=== PATIENT | female | born 1980 | race Caucasian/White ===

== ENCOUNTER → 2017-06-20 | Outpatient (CLI) | payer BC, OTHER ==
--- NOTE | 2017-06-23 07:35 | MAMMOGRAPHY REPORT ---
BILATERAL DIGITAL SCREENING MAMMOGRAM TOMOSYNTHESIS WITH CAD: 06/20/2017 CLINICAL HISTORY: Routine screening. Patient has no complaints. TECHNIQUE: Breast tomosynthesis in addition to standard 2D mammography was performed. Current study was also evaluated with a Computer Aided Detection (CAD) system. COMPARISON: Comparison is made to exams dated: 12/22/2014 mammogram, 12/25/2015 mammogram, 08/23/2014 ma mmogram, and 12/22/2014 ultrasound - [facility]. BREAST COMPOSITION: The tissue of both breasts is heterogeneously dense, which may obscure small mas ses. FINDINGS: No suspicious masses, calcifications, or areas of architectural distortion are noted in ei ther breast. There has been no significant interval change compared to prior exams. IMPRESSION: ACR BI-RADS CATEGORY 1: NEGATIVE There is no mammographic evidence of malignancy. A 1 year screening mammogram is recommended. The pa tient will receive written notification of the results. Approximately 10% of breast cancers are not detected with mammography. A negative mammographic report should not delay biopsy if a clinically suggestive mass is present. Bailey Paula M.D. ah/:06/20/2017 16:05:33 Legal Biller: Magui AMAYA(R)(M), [facility] letter sent: Normal 1/2 BI-RADS Code: ACR BI-RADS Category 1: Negative
== END | disposition home or self-care (01) ==
LOC: C.MAMM 15:06
PROVIDERS: ATTEND Obstetrics & Gynecology
DX: Z12.31 Encounter for screening mammogram for malignant neoplasm of breast (principal)

== ENCOUNTER → 2017-06-25 | Outpatient (CLI) | payer OTHER ==
--- NOTE | 2017-06-25 09:01 | DIAGNOSTIC IMAGING REPORT ---
LUMBAR SPINE 5 VIEWS HISTORY: LOW BACK PAIN WITH RIGHT RADICULOPATHY COMPARISON: None. FINDINGS: There is no fracture. No subluxation. Disc spaces are preserved. IMPRESSION: No fracture or subluxation within the lumbar spine. Electronically signed by: Joshua Rodgers M.D. 06/25/2017 9:00 AM Dictated Date/Time: 06/25/2017 8:59 AM
== END | disposition home or self-care (01) ==
LOC: C.RDSM 08:43
PROVIDERS: ATTEND Internal Medicine
DX: M54.5 Low back pain (principal)

== ENCOUNTER 2020-12-05 15:46 | Inpatient (IN) ==
[2020-12-05] MEDS ORDERED: OXYTOCIN 30 UNITS/500 ML BAG IV PRN (18:32)
--- NOTE | 2020-12-05 18:35 | History & Physical Report ---
Date of Service December 05, 2020 Assessment & Plan (1) Supervision of elderly primigravida: 39 y/o at 40 1/7 wga presenting in labor VSS Fetus cat 1 Labor - has made cervical change, will continue expectant management and augment as needed GBS neg epidural PRN will obtain covid test Admission and Anticipated Discharge Date Admission Date: December 05, 2020 History of Present Illness Chief Complaint: Labor Primary Care Provider: Al Rodriguez 39 y/o at 40 1/7 wga w/ MYRA 12/04 by LMP c/w 1st tri US who presents w/ c/o ctx increasing in frequency and intensity since being checked this AM, q2min. +FM, denies LOF. Small amt of VB here PNI: AMA > 40, had echo wnl Anxiety - zoloft Past [employer] HX: G1 2018 SAB - D&E G2 2019 SAB G3 2020 SAB G4 current Menarche 10, cycles q26d Reports hx abnl pap that she had colpo for years ago, 2018 neg cytology Denies hx STIs, reports hx of +HSV blood test but has never had oral or genital outbreak Allergies Allergy/AdvReac Type Severity Reaction Status Date / Time No Known Drug Allergies Allergy Verified 12/05/20 11:09 Home Medications Medication Instructions Recorded Confirmed Type sertraline 50 mg PO DAILY 11/01/18 12/05/20 History prenat.vits,leigh ann,[id number]-ulnfm 1 tab PO DAILY 10/06/19 12/05/20 History aspirin 81 mg chewable tablet 81 mg PO DAILY 08/14/20 12/05/20 History Patient History Medical History Anemia Anxiety Decreased hearing of left ear Depression Hx of varicella Miscarriage Missed Otitis externa Surgical History H/O wisdom tooth extraction Hx of LASIK S/P dilatation and curettage 2017 Family History Mother Breast cancer Dx at 45 Father Hypertension Grandfather (Paternal) Stroke Family/Other Heart disease multiple family members Other Family history non-contributory Denies family history of Ovarian cancer Colorectal cancer Uterine cancer Social History (Updated 04/21/20 @ 14:38 by Charley Murry) Smoking Status: Never smoker Hx Alcohol Use: No Hx Substance Use: No Preferred Language: Setswana Communication Ability: Effective Beliefs That Will Affect Care: None marital status: marital status details: Brandon Kirby (37) [phone] Current Living Situation: Spouse Current Living Situation Comment: lives with spouse, 2 dogs current occupational status: employed current occupation: Faculty @ [employer] Other Information That Helps Us Care for You: No Feels Safe at Home: Yes Safety Concerns: Feels Safe At This Time Assistive Devices: None Physical Exam Constitutional: WD/WN, vitals as above Respiratory: normal respiratory effort; no respiratory distress and no labored breathing Psychiatric: A+Ox3, euthymic affect Genitourinary: OB Exam Abdomen: + vertex (confirmed by BSUS) and + estimated weight (7-8lb) Manual OB Exam: + cervical dilation (changed from 1 to 2cm after 2hr maryann), + cervical effacement 70% and + station -2 OB Exam Monitor Tracing: + external FHT monitor used, + external uterine monitor used (q2-4) and + category I (130/mod/+accel/-decel) Results & Data ([facility]) Vital Signs (Past 12 Hours) Vital Signs Temp Pulse Resp BP 12/05/20 16:17 98.6 F 18 12/05/20 16:15 18 12/05/20 15:50 63 137/78 Laboratory Results OB Labs: Blood Type O Positive 04/26/20 Antibody Screen NEGATIVE 04/26/20 Hemoglobin 14.1 g/dL (12.0-16.0) 10/20/20 Hematocrit 39.7 % (37-47) 10/20/20 Mean Corpuscular Volume 98.5 fL (80-100) 10/20/20 Platelet Count 210 K/uL (130-400) 10/20/20 Varicella-Zoster IgG Antibody 1514.00 index 10/20/20 Rubella IgG Antibody Immune (Immune) 04/26/20 Rapid Plasma Reagin Nonreactive (Nonreactive) 04/26/20 Hepatitis B Surface Antigen Neg (Neg) 04/26/20 HIV (1&2) Ab and P24 Ag, 4th Gener Neg (Neg) 04/26/20 Glucose 1 Hour 50 gm Load 154 mg/dl (70-130) H 09/11/20 Maternal Serum Alpha Fetoprotein 58.8 ng/mL 07/06/20 OB Optional Labs: Chlamydia trachomatis RNA NOT DETECTED (NOT DETECTED) 04/26/20 Neisseria gonorrhoeae RNA NOT DETECTED (NOT DETECTED) 04/26/20 Thyroid Stimulating Hormone (TSH) 3.630 uIu/ml (0.300-4.500) 10/17/20 Alpha Fetoprotein Triple Screen SEE NOTE 07/06/20 Labs Reviewed: 04/14/18: (-) Pap- [facility] (-) CF/SMA/cfDNA- [facility] MSAFP neg - SLN GBS neg Diagnostic Findings Ant placenta Code Status & VTE Plan VTE Prophylaxis Plan VTE Prophylaxis will be ordered: Yes Coding Level of Care Code None Diagnoses Supervision of elderly primigravida O09.519
[2020-12-05 19:13] LABS: Hemoglobin 15.8 g/dL (12.0-16.0); Mean Corpuscular Hemoglobin 35.7 pg (25-34); Mean Corpuscular Hgb Conc 35.9 g/dL (32-36); Mean Corpuscular Volume 99.3 fL (80-100); Mean Platelet Volume 11.8 fL (7.4-10.4); Platelet Count 212 K/uL (130-400); RDW Coefficient of Variation 12.6 % (11.5-14.5); RDW Standard Deviation 45.8 fL (36.4-46.3); Red Blood Count 4.43 M/uL (4.2-5.4); White Blood Count 25.36 K/uL (4.8-10.8)
[2020-12-05] MEDS: LACTATED RINGER'S 1,000 ML IV PRN ×2 (19:22→21:03)
[2020-12-05] MEDS ORDERED: BUTORPHANOL TARTRATE 1 MG/ML VIAL IV PRN (19:28)
--- NOTE | 2020-12-05 20:33 | Labor Progress Brief Note ---
Date of Service December 05, 2020 Subjective Desires epidural Assessment & Plan (1) Supervision of elderly primigravida: 39 y/o at 40 1/7 wga presenting in labor VSS Fetus cat 1 Labor - descent in station, pt very painful and desires epidural. Augment PRN after GBS neg epidural PRN Admission and Anticipated Discharge Date Admission Date: December 05, 2020 Physical Exam Constitutional: WD/WN, vitals as above Respiratory: normal respiratory effort; no respiratory distress and no labored breathing Psychiatric: A+Ox3, euthymic affect Genitourinary: Manual OB Exam: + cervical dilation 2 cm, + cervical effacement 70% and + station -1 OB Exam Monitor Tracing: + external FHT monitor used, + external uterine monitor used (q3-5) and + category I (120/mod/+accel/-decel) Results & Data ([facility]) Vital Signs (Past 12 Hours) Vital Signs Temp Pulse Resp BP Pulse Ox 12/05/20 20:27 62 95 12/05/20 20:22 79 93 12/05/20 20:17 70 95 12/05/20 20:11 67 95 12/05/20 20:07 72 94 12/05/20 20:02 67 95 12/05/20 19:57 71 95 12/05/20 19:53 77 94 12/05/20 19:52 69 96 12/05/20 19:50 59 L 116/73 12/05/20 19:47 59 L 99 12/05/20 19:46 56 L 126/72 12/05/20 19:34 59 L 98 12/05/20 19:27 98.1 F 18 12/05/20 19:23 98.1 F 59 L 18 109/71 12/05/20 19:00 22 12/05/20 18:45 22 12/05/20 16:17 98.6 F 18 12/05/20 16:15 18 12/05/20 15:50 63 137/78 Coding Level of Care Code None Diagnoses Supervision of elderly primigravida O09.519
[2020-12-05] MEDS ORDERED: ePHEDrine sulfate 50 MG/ML AMP ONE (20:36)
[2020-12-05] MEDS ORDERED: SODIUM CHLORIDE 0.9% INJ 10 ML VIAL ONE (20:36)
[2020-12-05] MEDS ORDERED: BUPIVACAINE 0.25% 30 ML VIAL ONE (20:36)
[2020-12-05] MEDS ORDERED: fentaNYL citrate 100 MCG/2 ML VIAL ONE (20:37)
[2020-12-05] MEDS ORDERED: fentaNYL 2MCG/ML ROPIVACAINE 1.25MG/ML 100 ML BAG EPI ONE (20:37)
--- NOTE | 2020-12-05 20:53 | Anesthesiology Consultation ---
Date of Service December 05, 2020 Assessment & Plan (1) Encounter for pre-operative examination: Chart Review Chart Review: Acceptable Risk for Labor Epidural Consults Requested none ASA ASA2 Proposed Anesthesia Anesthesia Type: Labor Epidural Risk / Benefits Reviewed With: PT / POA / Parent / Guardian, Accepts Plan and Informed Consent Obtained History Height/Weight Height: 5 ft 4 in Weight: 67.132 kg Allergies Allergy/AdvReac Type Severity Reaction Status Date / Time No Known Drug Allergies Allergy Verified 12/05/20 11:09 Medications Home Medications Medication Instructions Recorded Confirmed Last Taken sertraline 50 mg PO DAILY 11/01/18 12/05/20 12/05/20 prenat.vits,leigh ann,cke-rovb-[id number] 1 tab PO DAILY 10/06/19 12/05/20 12/05/20 aspirin 81 mg chewable tablet 81 mg PO DAILY 08/14/20 12/05/20 12/05/20 Active Medications Generic Name Dose Route Start Last Admin Trade Name Freq PRN Reason Stop Dose Admin Butorphanol Tartrate 1 mg 12/05/20 19:28 12/05/20 19:47 Butorphanol Tartrate 1 Mg/Ml Vial IV 1 mg Q2H PRN Administration Pain Lactated Ringer's 1,000 mls @ 125 mls/hr 12/05/20 18:32 12/05/20 20:25 Lr IV 12/07/20 18:31 999 mls/hr .Q8H PRN Infusion L&D Protocol Protocol Past Medical History Medical History Anemia Anxiety Decreased hearing of left ear Depression Hx of varicella Miscarriage Missed Otitis externa Exercise / Class Metabolic Activity II 4-5 Yardwork/Stairs/Walk up hill Past Family History Family History Mother Breast cancer Dx at 45 Father Hypertension Grandfather (Paternal) Stroke Family/Other Heart disease multiple family members Other Family history non-contributory Denies family history of Ovarian cancer Colorectal cancer Uterine cancer Past Surgical History Surgical History H/O wisdom tooth extraction Hx of LASIK S/P dilatation and curettage 2017 Past Anesthesia History No Hx of Anesthesia Complications and No Family Hx of Anesthesia Complications History of PONV No Hx of PONV and No Hx of Motion Sickness Social History Smoking Status: Never smoker Hx Alcohol Use: No Hx Substance Use: No substance use type: does not use Physical Exam Vital Signs Last Vital Signs Temp 98.1 F 12/05/20 19:27 Pulse 68 12/05/20 20:47 Resp 18 12/05/20 19:27 BP 116/73 12/05/20 19:50 Pulse Ox 94 12/05/20 20:47 ENMT Mouth: no dentition abnormality Thyromental Distance: > or= 3.5 Finger Breadths Mallampati Class: II Neck normal visual inspection Respiratory normal respiratory effort Auscultation: lungs clear to auscultation bilaterally Cardiovascular Rate/Rhythm: regular rate and regular rhythm Testing Laboratory Results 12/05/20 18:47
[2020-12-05] MEDS ORDERED: NALOXONE HCL 0.4 MG/1 ML VIAL/CARP IV PRN (21:10)
[2020-12-05] MEDS ORDERED: ePHEDrine sulfate 50 MG/ML AMP IV PRN (21:10)
[2020-12-05] MEDS ORDERED: ONDANSETRON INJ 2 MG/ML 2 ML VIAL IV PRN (21:10)
[2020-12-05] MEDS ORDERED: NALOXONE HCL 1 MG in SODIUM CHLORIDE 0.9% 1000ML 1,000 ML IV PRN (21:10)
[2020-12-05] MEDS ORDERED: fentaNYL 2MCG/ML ROPIVACAINE 1.25MG/ML 100 ML BAG EPI PRN (21:10)
[2020-12-05] MEDS ORDERED: diphenhydrAMINE 50 MG/ML VIAL IV PRN (21:10)
--- NOTE | 2020-12-05 23:03 | Labor Progress Brief Note ---
Date of Service December 05, 2020 Subjective Comfortable w/ epidural, few decels noted to 80s-90s with recovery w/ maternal repositioning Assessment & Plan (1) Supervision of elderly primigravida: 39 y/o at 40 1/7 wga presenting in labor VSS Fetus cat 2, recovered to cat 1 Labor - progressing well, plan arom with next check after letting pt recover GBS neg epidural in place Admission and Anticipated Discharge Date Admission Date: December 05, 2020 Physical Exam Genitourinary: Manual OB Exam: + cervical dilation (3-4), + cervical effacement 70% and + station -1 OB Exam Monitor Tracing: + external FHT monitor used, + external uterine monitor used (q325) and + category I (125/mod/+accel/-decel) Results & Data ([facility]) Vital Signs (Past 12 Hours) Vital Signs Temp Pulse Resp BP Pulse Ox 12/05/20 22:56 64 97 12/05/20 22:55 18 12/05/20 22:51 59 L 97 12/05/20 22:47 72 111/66 12/05/20 22:46 75 98 12/05/20 22:41 70 98 12/05/20 22:36 67 97 12/05/20 22:31 69 109/59 L 97 12/05/20 22:28 18 12/05/20 22:26 68 97 12/05/20 22:21 64 97 12/05/20 22:16 71 103/60 97 12/05/20 22:11 61 97 12/05/20 22:06 61 97 12/05/20 22:01 58 L 107/59 L 97 12/05/20 22:00 18 12/05/20 21:56 62 98 12/05/20 21:51 70 97 12/05/20 21:46 71 101/62 97 12/05/20 21:42 72 96 12/05/20 21:41 82 117/76 12/05/20 21:36 70 94 12/05/20 21:34 64 113/73 12/05/20 21:31 63 96 12/05/20 21:30 18 12/05/20 21:29 81 113/67 12/05/20 21:26 68 95 12/05/20 21:24 98 H 115/73 12/05/20 21:21 91 H 95 06/22/21 21:18 91 H 107/72 12/05/20 21:16 80 110/71 95 12/05/20 21:14 70 107/67 12/05/20 21:12 71 104/68 12/05/20 21:11 97 H 95 12/05/20 21:10 97.7 F 71 18 116/66 12/05/20 21:08 65 111/65 12/05/20 21:06 61 122/74 95 12/05/20 21:04 57 L 113/71 12/05/20 21:02 65 95 12/05/20 20:56 61 128/72 95 12/05/20 20:53 20 12/05/20 20:51 60 94 12/05/20 20:47 68 94 12/05/20 20:41 72 95 12/05/20 20:37 64 95 12/05/20 20:32 68 96 12/05/20 20:27 62 95 12/05/20 20:22 79 93 12/05/20 20:17 70 95 12/05/20 20:11 67 95 12/05/20 20:07 72 94 12/05/20 20:02 67 95 12/05/20 19:57 71 95 12/05/20 19:53 77 94 12/05/20 19:52 69 96 12/05/20 19:50 59 L 116/73 12/05/20 19:47 59 L 99 12/05/20 19:46 56 L 126/72 12/05/20 19:34 59 L 98 12/05/20 19:27 98.1 F 18 12/05/20 19:23 98.1 F 59 L 18 109/71 12/05/20 19:00 22 12/05/20 18:45 22 12/05/20 16:17 98.6 F 18 12/05/20 16:15 18 12/05/20 15:50 63 137/78 Coding Level of Care Code None Diagnoses Supervision of elderly primigravida O09.519
--- NOTE | 2020-12-06 01:03 | Labor Progress Brief Note ---
Date of Service December 06, 2020 Subjective Comfortable w/ epidural Assessment & Plan (1) Supervision of elderly primigravida: 39 y/o at 40 1/7 wga presenting in labor VSS Fetus cat 1 Labor - progressing well, s/p arom. Continue to monitor GBS neg epidural in place Admission and Anticipated Discharge Date Admission Date: December 05, 2020 Physical Exam Genitourinary: Manual OB Exam: + cervical dilation 9 cm, + cervical effacement 100%, + station + 1 and + amniotic fluid (bag noted to be coming out of vagina, mec fluid w/ ROM) OB Exam Monitor Tracing: + external FHT monitor used, + external uterine monitor used (q4-5) and + category I (125/mod/+accel/-decel) Results & Data ([facility]) Vital Signs (Past 12 Hours) Vital Signs Temp Pulse Resp BP Pulse Ox 12/06/20 00:56 77 97 12/06/20 00:51 69 97 12/06/20 00:46 62 112/75 97 12/06/20 00:41 63 97 12/06/20 00:36 65 96 12/06/20 00:32 66 111/71 12/06/20 00:31 65 96 12/06/20 00:30 18 12/06/20 00:26 66 96 12/06/20 00:21 66 95 12/06/20 00:16 59 L 111/74 96 12/06/20 00:11 61 96 12/06/20 00:06 66 97 12/06/20 00:04 97.5 F L 12/06/20 00:02 75 114/77 12/06/20 00:01 77 96 12/06/20 00:00 18 12/05/20 23:56 78 96 12/05/20 23:51 67 96 12/05/20 23:48 65 111/71 12/05/20 23:46 66 96 12/05/20 23:41 72 96 12/05/20 23:36 79 96 12/05/20 23:32 68 126/73 12/05/20 23:31 72 96 12/05/20 23:30 18 12/05/20 23:26 74 97 12/05/20 23:21 75 96 12/05/20 23:16 75 113/71 96 12/05/20 23:15 18 12/05/20 23:11 72 96 12/05/20 23:06 67 96 12/05/20 23:02 67 117/75 12/05/20 23:01 67 96 12/05/20 22:56 64 97 12/05/20 22:55 18 12/05/20 22:51 59 L 97 12/05/20 22:47 72 111/66 12/05/20 22:46 75 98 12/05/20 22:41 70 98 12/05/20 22:36 67 97 12/05/20 22:31 69 109/59 L 97 12/05/20 22:28 18 12/05/20 22:26 68 97 12/05/20 22:21 64 97 12/05/20 22:16 71 103/60 97 12/05/20 22:11 61 97 12/05/20 22:06 61 97 12/05/20 22:01 58 L 107/59 L 97 12/05/20 22:00 18 12/05/20 21:56 62 98 12/05/20 21:51 70 97 12/05/20 21:46 71 101/62 97 12/05/20 21:42 72 96 12/05/20 21:41 82 117/76 12/05/20 21:36 70 94 12/05/20 21:34 64 113/73 12/05/20 21:31 63 96 12/05/20 21:30 18 12/05/20 21:29 81 113/67 12/05/20 21:26 68 95 12/05/20 21:24 98 H 115/73 12/05/20 21:21 91 H 95 12/05/20 21:18 91 H 107/72 12/05/20 21:16 80 110/71 95 12/05/20 21:14 70 107/67 12/05/20 21:12 71 104/68 12/05/20 21:11 97 H 95 12/05/20 21:10 97.7 F 71 18 116/66 12/05/20 21:08 65 111/65 12/05/20 21:06 61 122/74 95 22 21:04 57 L 113/71 12/05/20 21:02 65 95 12/05/20 20:56 61 128/72 95 12/05/20 20:53 20 12/05/20 20:51 60 94 12/05/20 20:47 68 94 12/05/20 20:41 72 95 12/05/20 20:37 64 95 12/05/20 20:32 68 96 12/05/20 20:27 62 95 12/05/20 20:22 79 93 12/05/20 20:17 70 95 12/05/20 20:11 67 95 12/05/20 20:07 72 94 12/05/20 20:02 67 95 12/05/20 19:57 71 95 12/05/20 19:53 77 94 12/05/20 19:52 69 96 12/05/20 19:50 59 L 116/73 12/05/20 19:47 59 L 99 12/05/20 19:46 56 L 126/72 12/05/20 19:34 59 L 98 12/05/20 19:27 98.1 F 18 12/05/20 19:23 98.1 F 59 L 18 109/71 12/05/20 19:00 22 12/05/20 18:45 22 12/05/20 16:17 98.6 F 18 12/05/20 16:15 18 12/05/20 15:50 63 137/78 Coding Level of Care Code None Diagnoses Supervision of elderly primigravida O09.519
--- NOTE | 2020-12-06 03:12 | Delivery Summary ---
Vaginal Delivery Summary Date of Service December 06, 2020 PREOPERATIVE DIAGNOSIS: 1. Single intrauterine at 40 2/7 wga 2. Labor 3. AMA POSTOPERATIVE DIAGNOSIS: 1. Single intrauterine at 40 2/7 wga 2. Labor 3. AMA 4. Delivered PROCEDURE: 1. Normal spontaneous vaginal delivery. SURGEON: Natalie Mcgill MD ANESTHESIA: Epidural. ESTIMATED BLOOD LOSS: 300 mL FLUIDS: Continuous LR. URINE OUTPUT: None. COMPLICATIONS: None. CONDITION: Stable. INDICATIONS: 39 y/o at 40 2/7 wga presented yesterday afternoon with complaints of contractions increasing in frequency and intensity. She had been fingertip in the office and 1cm on arrival to labor and delivery. After 2 hour maryann period, she had progressed to 2cm and admitted for labor. She received an epidural for pain control and underwent artificial rupture of membranes. She then progressed to complete and desired to push. FINDINGS: A viable male infant with Apgars of 8 and 9 at 1 and 5 minutes respectively. SPECIMEN: Cord blood OPERATIVE REPORT: The patient progressed to 10 cm, 100% effaced and +2 station, pushed over intact perineum with anesthesia to deliver a viable male , Apgars as above. Head of delivered in [place] position. No nuchal cord was present. Body and shoulders were delivered without difficulty. was delivered to maternal abdomen and nursing staff. Delayed cord clamping was performed for 60 seconds. Cord was clamped and cut. Cord blood was obtained. Placenta delivered spontaneously intact with 3-vessel cord. IV oxytocin and fundal massage were given for excellent hemostasis. Vagina, cervix, perineum, and placenta were inspected. A second degree laceration was noted and repaired in the usual fashion. Sponge and needle counts correct x2. No sponges were left behind. Mother and stable in immediate period. Vaginal Delivery Summary and 2nd Degree LAC [facility] Vaginal Delivery Charge Vaginal Delivery Codes: 36442 global code for the antepartum, delivery, and post- Delivery Type Details: and 2nd Degree LAC
[2020-12-06] MEDS ORDERED: DIPHTHERIA/TETANUS/PERTUSSIS 0.5 ML SYR/VIAL IM ONE (03:21)
[2020-12-06] MEDS ORDERED: bisacodyL 10 MG SUPP PR PRN (03:21)
[2020-12-06] MEDS ORDERED: BENZOCAINE 20% AER SPR 82.5 GM CAN EXT PRN (03:21)
[2020-12-06] MEDS ORDERED: HYDROCORTISONE ACETATE 25 MG SUPP PR PRN (03:21)
[2020-12-06] MEDS ORDERED: ACETAMINOPHEN 325 MG TAB PO PRN (03:21)
[2020-12-06] MEDS ORDERED: OXYTOCIN 30 UNITS/500 ML BAG IV PRN (03:21)
[2020-12-06] MEDS: IBUPROFEN 600 MG TAB PO PRN ×4 (07:02→21:19)
--- NOTE | 2020-12-06 07:20 | Anesthesia Procedure Note ---
Date of Service December 06, 2020 Anesthesia Post Epidural Note Vital Signs Vital Signs: Temp Pulse Resp BP Pulse Ox 36.4 C L 76 18 121/66 96 12/06/20 05:05 12/06/20 05:06 12/06/20 05:05 12/06/20 05:06 12/06/20 03:01 Notes Mental Status: alert / awake / arousable and participated in evaluation Nausea / Vomiting: adequately controlled Pain: adequately controlled Airway Patency, RR, SpO2: stable & adequate BP & HR: stable & adequate Hydration State: stable & adequate Neuraxial Anesthesia: was administered and sensory block is resolving Anesthetic Complications: no major complications apparent and Pt Satisfied with anesthetic care Epidural: Removed without complications and With tip intact
[2020-12-06] MEDS: FERROUS SULFATE 325 MG TAB PO SCH (08:35)
[2020-12-06] MEDS: SUPERCREAM 0.870% 15 GM JAR EXT PRN (08:35)
[2020-12-06] MEDS: PRENATAL VITAMIN 1 TAB PO SCH (08:35)
[2020-12-06] MEDS: SERTRALINE HCL 50 MG TABLET PO SCH (08:35)
[2020-12-06] MEDS: DOCUSATE SODIUM 100 MG CAP PO SCH ×2 (08:35→21:19)
[2020-12-07] MEDS: IBUPROFEN 600 MG TAB PO PRN ×4 (04:43→18:20)
[2020-12-07 06:49] LABS: Hematocrit (blood only) 35.4 % (37-47); Hemoglobin 12.4 g/dL (12.0-16.0); Mean Corpuscular Hemoglobin 35.3 pg (25-34); Mean Corpuscular Volume 100.9 fL (80-100); Mean Platelet Volume 11.4 fL (7.4-10.4); Platelet Count 193 K/uL (130-400); RDW Coefficient of Variation 12.8 % (11.5-14.5); RDW Standard Deviation 46.7 fL (36.4-46.3); Red Blood Count 3.51 M/uL (4.2-5.4); White Blood Count 16.45 K/uL (4.8-10.8)
--- NOTE | 2020-12-07 07:34 | Obstetrical Progress Note ---
Date of Service December 07, 2020 Assessment & Plan (1) Encounter for care and examination after delivery: satisfactory course continue current care plan Subjective Ambulation: ambulating normally Voiding: no voiding problems Passing Gas:: Yes Diet Tolerance:: regular diet Lochia:: Small Feeding Type:: breast feeding feels well voiding without difficulty neck is a little sore and stiff today Physical Exam Constitutional WD/WN, vitals as above Cardiovascular Extremities: no calf tenderness Psychiatric A+Ox3, euthymic affect Genitourinary OB Exam Abdomen: + fundal height Fundus: + firm and + relation to umbilicus (at U) Results & Data ([facility]) Vital Signs (Past 12 Hours) Vital Signs Temp Pulse Resp BP Pulse Ox 12/07/20 04:30 98.6 F 72 18 113/74 98 12/07/20 00:20 98.4 F 67 20 111/74 97 12/06/20 20:05 98.1 F 80 18 102/66 97
[2020-12-07] MEDS: DOCUSATE SODIUM 100 MG CAP PO SCH (09:11)
[2020-12-07] MEDS: PRENATAL VITAMIN 1 TAB PO SCH (09:11)
[2020-12-07] MEDS: FERROUS SULFATE 325 MG TAB PO SCH (09:11)
[2020-12-07] MEDS: SERTRALINE HCL 50 MG TABLET PO SCH (09:12)
[2020-12-07] MEDS: oxyCODONE/ACETAMINOPHEN 5mg/325mg TAB PO PRN ×3 (09:44→18:20)
[2020-12-07] MEDS: SUPERCREAM 0.870% 15 GM JAR EXT PRN (16:32)
[2020-12-07] MEDS ORDERED: bisacodyL 5 MG TABEC PO SCH (20:00)
== END 2020-12-07 18:58 | disposition home or self-care (01) | DRG 807 ==
LOC: 4S1 15:46 → 4S2 12-06 05:20